=== PATIENT | female | born 1995 | race Caucasian/White ===

== ENCOUNTER 2021-10-05 19:47 | Emergency (ER) | payer OTHER, SELFPAY ==
--- NOTE | 2021-10-05 20:00 | ED.URI ---
HPI - URI/Sore Throat General Chief Complaint: Upper Respiratory Infection Stated Complaint: Cough Time Seen by Provider: 10/05/21 20:00 Source: patient and RN notes reviewed Mode of arrival: ambulatory Limitations: no limitations History of Present Illness HPI Narrative: 25-year-old female presents to the [facility] with a cough left ear pain and sinus congestion. Has taken Tylenol and an [id number] product today. Symptoms x2 days. Denies fevers. Denies nausea vomiting or diarrhea. No chest pain or shortness of breath Related Data Home Medications Medication Instructions Recorded Confirmed sertraline 100 mg tablet 1 tablet PO DAILY 10/05/21 10/05/21 Allergies Allergy/AdvReac Type Severity Reaction Status Date / Time No Known Allergies Allergy Verified 10/05/21 19:50 Review of Systems Review of Systems: All systems reviewed & are unremarkable except as noted in HPI and below Constitutional: Constitutional: Reports no additional constitutional complaints, Denies chills and Denies fever(s) Eyes: Eyes: Reports no additional eye complaints ENT: Reports as per HPI and Reports nasal congestion Cardiovascular: Cardiovascular: Reports no additional cardiovascular complaints Respiratory: Respiratory: Reports as per HPI, Denies chest congestion, Reports cough, Denies dyspnea and Denies wheezing Gastrointestinal: Gastrointestinal: Reports no additional gastrointestinal complaints Musculoskeletal: Musculoskeletal: Reports no additional musculoskeletal complaints Integumentary/Breasts: Skin/Breast: Reports system reviewed and no additional complaints, except as docu Neurologic: Reports system reviewed and no additional complaints, except as documented Psychiatric: Psychiatric: Reports no additional psychiatric complaints Allergic/Immunologic: Allergic/Immunologic: Reports no additional allergic/immunologic complaints [facility] Past Medical History Medical History Bipolar II disorder Surgical History Surgical History No pertinent past surgical history Family History Family History Father Family history of mental disorder Depression Mother Family history of migraine headaches Hypertension Sibling Family history of allergic disorder Family history of seizure disorder Grandparent Hypertension Malignant neoplasm of prostate Family history of malignant neoplasm of brain Family history of coronary artery disease Other Family history of malignant neoplasm of male breast Social History Social History (Reviewed 10/05/21 @ 20:23 by YUDI Rankin Smoking status: Never smoker Second hand tobacco smoke exposure: Yes Alcohol intake: never Comments At the time of my signature, I reviewed and agree with the nursing past medical, surgical, social, and family history. There is no relevant family history pertinent to the patient complaint. Exam Const: General: healthy appearing, no acute distress and alert Nutritional Appearance: well nourished Orientation/consciousness: patient oriented x3 Limitations: no limitations HENMT: Head: normal to inspection Ears: external ears normal and TM abnormal erythematous on the left General nose exam: Normal external nose present and Nasal discharge present clear Face and sinus: normal facial exam Throat: posterior oropharynx normal Eyes: General: appearance normal, both eyes and all related structures Pupils: Equal, round and reactive pupils present Neck: Neck: normal visual inspection, no lymphadenopathy and no meningeal signs Chest: Chest palpation & inspection: normal inspection of the chest Resp: Effort & Inspection: normal respiratory effort and no use of accessory muscles Auscultation: clear to auscultation bilaterally, no crackles, no rales, no rhonchi and no wheezes
[2021-10-05 20:10] VITALS: BP 130/76; PULSE 105; RESP 20; TEMP 37.2; O2SAT 100
== END 2021-10-05 20:26 | disposition home or self-care (01) ==
PROVIDERS: Emergency Provider Nurse Practitioner
DX: H66.92 Otitis media, unspecified, left ear (principal); R09.82 Postnasal drip; F31.81 Bipolar II disorder
CPT/HCPCS: 99213; G0463

== ENCOUNTER 2022-02-26 12:25 | Emergency (ER) | payer OTHER, SELFPAY ==
[2022-02-26 12:48] VITALS: BP 111/84; PULSE 88; RESP 18; TEMP 37.1; O2SAT 99
--- NOTE | 2022-02-26 12:50 | ED.URI ---
HPI - URI/Sore Throat General Chief Complaint: Upper Respiratory Infection Stated Complaint: Cough,Headache Time Seen by Provider: 02/26/22 12:50 Source: patient Mode of arrival: ambulatory Limitations: no limitations History of Present Illness HPI Narrative: 26-year-old female presents with complaint cough, nasal congestion, chest congestion, fatigue for 2 days. Afebrile. Denies shortness of breath and chest pain. Not taking any [id number] medications to treat her symptoms. Was seen at [facility] [employer] [facility] 2 days ago with her son who has similar symptoms and was told has adenovirus. All systems reviewed and negative except as noted above. Related Data Home Medications Medication Instructions Recorded Confirmed sertraline 100 mg tablet 1 tablet PO DAILY 10/05/21 02/26/22 Allergies Allergy/AdvReac Type Severity Reaction Status Date / Time No Known Allergies Allergy Verified 12/03/21 09:06 Review of Systems Review of Systems: CONSTITUTIONAL: Denies fever, chills, or sweats. EYES: Denies visual changes, redness, or discharge. ENT: Reports rhinorrhea, congestion. Deniessore throat, or otalgia. CARDIOVASCULAR: Denies chest pain, palpitations, or edema. RESPIRATORY: reports cough. denies dyspnea. GASTROINTESTINAL: Denies abdominal pain, nausea, vomiting, or diarrhea. GENITOURINARY: Denies dysuria or hematuria. SKIN: Denies rash or itching. MUSCULOSKELETAL: Denies back pain, joint pain, or myalgia. NEUROLOGIC: Denies headache, numbness, or weakness. PSYCHIATRIC: Denies anxiety or depression. All other systems reviewed are negative, except as documented in HPI. [facility] Past Medical History Medical History Bipolar II disorder Surgical History Surgical History No pertinent past surgical history Family History Family History Father Family history of mental disorder Depression Mother Family history of migraine headaches Hypertension Sibling Family history of allergic disorder Family history of seizure disorder Grandparent Hypertension Malignant neoplasm of prostate Family history of malignant neoplasm of brain Family history of coronary artery disease Other Family history of malignant neoplasm of male breast Social History Social History (System 12/03/21 @ 09:06 by Jorge Ruiz) Smoking status: Never smoker Second hand tobacco smoke exposure: Yes Alcohol intake: never Comments At time of signature, agree with nursing past medical, surgical, social and family history. There is no relevant family history pertinent to the presenting complaint. Exam Narrative: GENERAL: This is a well-nourished, well-developed patient, in no apparent distress. HEAD: normocephalic, atraumatic. EYES: PERRL. Sclera clear/white. Vision is grossly intact. EARS: External ears normal, auditory canals clear and without drainage, TMs normal without perforation. Hearing grossly intact. NOSE: External nose normal with no obvious nasal discharge, nares without redness, no rhinorrhea. THROAT: Mucous membranes moist, posterior pharynx clear. NECK: Neck supple, non-tender without lymphadenopathy, masses or thyromegaly. CARDIOVASCULAR: Regular rate and rhythm without murmurs, gallops, or rubs. RESPIRATORY: coarse lung sounds throughout all lung palencia. SKIN: warm, Dry, intact with no suspicious lesions or rash, good texture and turgor. NEURO: awake, alert, and oriented to person, place and time. There were no obvious focal neurologic abnormalities. EXTREMITIES: No joint tenderness, effusion, or edema noted. Course Course Level of Care: Express Care Visit Vital Signs Vital signs: Vital Signs Temperature 37.1 C 02/26/22 12:48 Pulse Rate 88 02/26/22 12:48 Respiratory Rate 18 02/26/22 12:48 Blood Pressure 111/84 02/15
== END 2022-02-26 13:15 | disposition home or self-care (01) ==
PROVIDERS: Emergency Provider Nurse Practitioner Family
DX: B34.9 Viral infection, unspecified (principal)
CPT/HCPCS: 87804; 99213; G0463

== ENCOUNTER 2022-04-21 10:57 | Emergency (ER) | payer OTHER, SELFPAY ==
[2022-04-21 11:04] VITALS: BP 125/73; PULSE 85; RESP 16; TEMP 36.8; O2SAT 99
--- NOTE | 2022-04-21 11:04 | ED.URI ---
HPI - URI/Sore Throat General Chief Complaint: Upper Respiratory Infection Stated Complaint: cough Source: patient and RN notes reviewed Mode of arrival: ambulatory Limitations: no limitations History of Present Illness HPI Narrative: 26 y/o female presented for c/o cough for 2 months, endorses 'crackles' and productive of clear or green sputum. cough worse at night. Also with sneezing and runny nose, feels sob with exertion. Quit smoking 2 months ago. Taking mucinex, Dayquil, Nyquil and refugio without relief. Feb 2022 her son was positive for influenza, this was about the onset of her symptoms. Denies hemoptysis, cp, palpitations, n/v/d/f/c. MD elicited complaint: cough Related Data Home Medications Medication Instructions Recorded Confirmed sertraline 100 mg tablet 1 tablet PO DAILY 10/05/21 04/21/22 Allergies Allergy/AdvReac Type Severity Reaction Status Date / Time No Known Allergies Allergy Verified 04/21/22 11:10 Review of Systems Review of Systems: CONSTITUTIONAL: Denies malaise, chills, sweats, fever EYES: Denies visual changes, redness, or discharge ENT: Reports rhinorrhea, denies sinus pain, otalgia, sore throat CARDIOVASCULAR: Denies chest pain, palpitations, edema RESPIRATORY: Per HPI GASTROINTESTINAL: Denies abdominal pain, nausea, vomiting, diarrhea SKIN: Denies rash or itching MUSCULOSKELETAL: Denies myalgia NEUROLOGIC: Denies headache PMFSH Past Medical History Medical History Bipolar II disorder Surgical History Surgical History No pertinent past surgical history Family History Family History Father Family history of mental disorder Depression Mother Family history of migraine headaches Hypertension Sibling Family history of allergic disorder Family history of seizure disorder Grandparent Hypertension Malignant neoplasm of prostate Family history of malignant neoplasm of brain Family history of coronary artery disease Other Family history of malignant neoplasm of male breast Social History Social History Smoking status: Never smoker Second hand tobacco smoke exposure: Yes Alcohol intake: never Exam Narrative: GENERAL: well-appearing EYES: PERRLA, conjunctivae clear ENT: Mucous membranes moist. TM pearly valverde with dull light reflex bilaterally; no tragal tenderness. Oropharynx erythematous without lesions or exudate CHEST: Coarse throughout all palencia. No respiratory distress, speaks in full sentences. HEART: Regular rate and rhythm. No murmur heard. SKIN: Warm, dry, no rash. NEURO: Alert and oriented x3. PSYCH: Normal mood and affect Course Course Emergency Course: Patient is aware of diagnosis, understands and agrees to treatment plan. Anticipatory guidance given. Patient agrees to follow-up as directed and is aware of reasons to seek care at the emergency department. Portions of this record may have been created with voice recognition software Level of Care: Express Care Visit Vital Signs Vital signs: reviewed MDM - URI/Sore Throat MDM Narrative Medical decision making narrative: Advised supportive measures and signs/symptoms to go to the ER. Pt is appropriate for outpt treatment and f/u. Differential Diagnosis Differential diagnosis: Likely upper respiratory infection, sinusitis, viral infection and bronchitis Discharge Plan Discharge Clinical Impression: Bronchitis Patient Disposition: Home, Self-Care Condition: Stable Instructions: Antibiotic Form, Acute Bronchitis (ED), Pneumonia (ED) Additional Instructions: Take medication as directed Recommend Flonase spray and Zyrtec (or Claritin/Refugio) over the counter Cough syrup may cause drowsiness; avoid driving or take it at night time. Alo
== END 2022-04-21 11:22 | disposition home or self-care (01) ==
PROVIDERS: Emergency Provider Nurse Practitioner Family
DX: J40 Bronchitis, not specified as acute or chronic (principal); Z87.891 Personal history of nicotine dependence; F31.81 Bipolar II disorder
CPT/HCPCS: 99213; G0463

== ENCOUNTER 2022-10-05 13:51 | Emergency (ER) | payer OTHER, SELFPAY ==
[2022-10-05 13:59] VITALS: BP 140/76; PULSE 101; RESP 16; O2SAT 100
--- NOTE | 2022-10-05 14:03 | ED.URI ---
HPI - URI/Sore Throat General Chief Complaint: Upper Respiratory Infection Stated Complaint: Cough; headache Time Seen by Provider: 10/05/22 14:03 Source: patient Mode of arrival: ambulatory Limitations: no limitations History of Present Illness HPI Narrative: 26-year-old female presents with complaint nasal congestion, postnasal drainage, sore throat, sinus pressure and pain, cough for the past 3 weeks. States she has tried several [id number] sinus medications with no relief of symptoms. Afebrile. Saw her primary care physician yesterday to discuss her symptoms and was told symptoms were from ingestion of meds given in an acid medication. states she has not started this medication as she feels that she has a sinus infection. All systems reviewed and negative except as noted above. Related Data Home Medications Medication Instructions Recorded Confirmed sertraline 100 mg tablet 1 tablet PO DAILY 10/05/21 10/05/22 famotidine 40 mg tablet 40 mg PO DAILY 10/05/22 10/05/22 Allergies Allergy/AdvReac Type Severity Reaction Status Date / Time No Known Allergies Allergy Verified 10/05/22 13:57 Review of Systems Review of Systems: CONSTITUTIONAL: Denies fever, chills, or sweats. EYES: Denies visual changes, redness, or discharge. ENT: Reports rhinorrhea, congestion, sore throat, postnasal drainage, sinus pressure. Denies otalgia. CARDIOVASCULAR: Denies chest pain, palpitations, or edema. RESPIRATORY: reports cough. Denies dyspnea. GASTROINTESTINAL: Denies abdominal pain, nausea, vomiting, or diarrhea. GENITOURINARY: Denies dysuria or hematuria. SKIN: Denies rash or itching. MUSCULOSKELETAL: Denies back pain, joint pain, or myalgia. NEUROLOGIC: Denies headache, numbness, or weakness. PSYCHIATRIC: Denies anxiety or depression. All other systems reviewed are negative, except as documented in HPI. [facility] Past Medical History Medical History Bipolar II disorder Surgical History Surgical History No pertinent past surgical history Family History Family History Father Family history of mental disorder Depression Mother Family history of migraine headaches Hypertension Sibling Family history of allergic disorder Family history of seizure disorder Grandparent Hypertension Malignant neoplasm of prostate Family history of malignant neoplasm of brain Family history of coronary artery disease Other Family history of malignant neoplasm of male breast Social History Social History Smoking status: Never smoker Second hand tobacco smoke exposure: Yes Alcohol intake: never Comments At time of signature, agree with nursing past medical, surgical, social and family history. There is no relevant family history pertinent to the presenting complaint. Exam Narrative: GENERAL: This is a well-nourished, well-developed patient, in no apparent distress. HEAD: normocephalic, atraumatic. EYES: PERRL. Sclera clear/white. Vision is grossly intact. EARS: External ears normal, auditory canals clear and without drainage, fluid bilateral TMs without erythema perforation. Hearing grossly intact. NOSE: External nose normal with Purulent nasal drainage with erythema and swelling to both nares. Bilateral maxillary sinus tenderness. THROAT: Mucous membranes moist, Erythema postnasal drainage. NECK: Neck supple, non-tender without lymphadenopathy, masses or thyromegaly. CARDIOVASCULAR: Regular rate and rhythm without murmurs, gallops, or rubs. RESPIRATORY: Clear to auscultation. Breath sounds equal bilaterally. No wheezes, rales, or rhonchi. SKIN: warm, Dry, intact with no suspicious lesions or rash, good texture and turgor. NEURO: awake, alert, and oriented to person, place
== END 2022-10-05 14:15 | disposition home or self-care (01) ==
PROVIDERS: Emergency Provider Nurse Practitioner Family
DX: J01.90 Acute sinusitis, unspecified (principal); F31.81 Bipolar II disorder
CPT/HCPCS: 99213; G0463

== ENCOUNTER 2023-04-17 14:07 | Emergency (ER) | payer OTHER, SELFPAY ==
[2023-04-17 14:20] VITALS: BP 123/68; PULSE 78; RESP 18; TEMP 36.3; O2SAT 99
--- NOTE | 2023-04-17 14:26 | ED.GENADULT ---
HPI - General Adult General Chief complaint: Upper Respiratory Infection Stated complaint: eye irritation,sorethroat Source: patient, RN notes reviewed and old records reviewed Mode of arrival: ambulatory Limitations: no limitations History of Present Illness HPI narrative: 27-year-old female presents to [facility] with complaint of sore throat that started today. Patient also complaining left eye redness, irritation, draining, a.m. matting this started 5-6 days ago. Patient states started using eyedrops(sulfacetamide) she got from a friend with out improvement. patient does wear contact lenses complaint: eye redness Onset (ago): day(s) Related Data Home Medications Medication Instructions Recorded Confirmed sertraline 100 mg tablet 1 tablet PO DAILY 10/05/21 04/17/23 Allergies Allergy/AdvReac Type Severity Reaction Status Date / Time No Known Allergies Allergy Verified 04/17/23 14:21 Review of Systems Constitutional: Constitutional: Reports no additional constitutional complaints, Denies body ache(s), Denies chills, Denies fatigue, Denies fever(s) and Denies headache(s) Eyes: Eyes: Reports as per HPI, Denies blurry vision, Denies exophthalmos, Denies change in vision, Denies decreased night vision, Denies diplopia, Reports eye discharge and Reports irritation ENT: Reports system reviewed and no additional complaints, except as documented, Denies vertigo, Denies dizziness, Denies ear discharge, Denies otalgia, Denies facial pain, Denies headache(s), Denies nasal congestion, Denies nasal discharge, Denies sinus pain, Denies sinus pressure and Reports sore throat Cardiovascular: Cardiovascular: Reports no additional cardiovascular complaints, Denies chest pain, Denies chest pain at rest, Denies rapid heart rate and Denies dyspnea Respiratory: Respiratory: Reports no additional respiratory complaints, Denies chest congestion, Denies cough, Denies pain on inspiration, Denies pain with cough and Denies dyspnea Gastrointestinal: Gastrointestinal: Denies abdominal pain, Denies diarrhea, Denies nausea and Denies vomiting Integumentary/Breasts: Skin/Breast: Denies rash Neurologic: Reports system reviewed and no additional complaints, except as documented, Denies vertigo, Denies dizziness and Denies headache(s) Endocrine: Endocrine: Denies fatigue PMFSH Past Medical History Medical History Bipolar II disorder Surgical History Surgical History No pertinent past surgical history Family History Family History Father Family history of mental disorder Depression Mother Family history of migraine headaches Hypertension Sibling Family history of allergic disorder Family history of seizure disorder Grandparent Hypertension Malignant neoplasm of prostate Family history of malignant neoplasm of brain Family history of coronary artery disease Other Family history of malignant neoplasm of male breast Social History Social History Smoking status: Never smoker Second hand tobacco smoke exposure: Yes Alcohol intake: never Comments At the time of my signature, I reviewed and agree with the nursing past medical, surgical, social, and family history. There is no relevant family history pertinent to the patient complaint. Exam Const: General: cooperative, healthy appearing, no acute distress and well nourished Nutritional Appearance: well nourished Orientation/consciousness: patient oriented x3 Limitations: no limitations HENMT: Head: normal to inspection and normocephalic Ears: external ears normal, TM's normal bilaterally, mastoids normal and Abnormal EAC present Face/Nose/Sinus: normal facial exam Face and sinus: normal facial exam Mouth: Yes Normal oral and palatal muc
== END 2023-04-17 14:42 | disposition home or self-care (01) ==
PROVIDERS: Emergency Provider Registered Nurse
DX: H10.32 Unspecified acute conjunctivitis, left eye (principal); J02.9 Acute pharyngitis, unspecified; Z79.899 Other long term (current) drug therapy
CPT/HCPCS: 87081; 87880; 99213; G0463

== ENCOUNTER 2024-01-04 08:19 | Emergency (ER) | payer SELFPAY ==
[2024-01-04 08:20] VITALS: BP 131/78; PULSE 82; RESP 18; TEMP 37.3; O2SAT 100
--- NOTE | 2024-01-04 08:24 | ED.DENTAL ---
HPI - Dental/Oral General Chief complaint: Dental/Oral Stated complaint: Dental Pain Time Seen by Provider: 01/04/24 08:28 Source: patient, RN notes reviewed and old records reviewed Mode of arrival: ambulatory Limitations: no limitations History of Present Illness HPI Narrative: 28-year-old female presents to the [facility] with complaints of dental pain. Swelling noted to the left cheek without erythema. Patient states the discomfort started yesterday, woke up this morning with swelling. Related Data Home Medications Medication Instructions Recorded Confirmed sertraline 100 mg tablet 1 tablet PO DAILY 10/05/21 04/17/23 Allergies Allergy/AdvReac Type Severity Reaction Status Date / Time No Known Allergies Allergy Verified 01/04/24 08:45 Review of Systems Review of Systems: All systems reviewed & are unremarkable except as noted in HPI and below Constitutional: Constitutional: Reports no additional constitutional complaints Eyes: Eyes: Reports no additional eye complaints ENT: Reports as per HPI and Reports dental pain Cardiovascular: Cardiovascular: Reports no additional cardiovascular complaints, Denies chest pain and Denies dyspnea Respiratory: Respiratory: Reports no additional respiratory complaints, Denies chest congestion, Denies cough and Denies dyspnea Gastrointestinal: Gastrointestinal: Reports no additional gastrointestinal complaints, Denies abdominal pain, Denies nausea and Denies vomiting Musculoskeletal: Musculoskeletal: Reports no additional musculoskeletal complaints Integumentary/Breasts: Skin/Breast: Reports system reviewed and no additional complaints, except as docu Neurologic: Reports system reviewed and no additional complaints, except as documented Psychiatric: Psychiatric: Reports no additional psychiatric complaints Allergic/Immunologic: Allergic/Immunologic: Reports no additional allergic/immunologic complaints [facility] Past Medical History Medical History Bipolar II disorder Surgical History Surgical History No pertinent past surgical history Family History Family History Father Family history of mental disorder Depression Mother Family history of migraine headaches Hypertension Sibling Family history of allergic disorder Family history of seizure disorder Grandparent Hypertension Malignant neoplasm of prostate Family history of malignant neoplasm of brain Family history of coronary artery disease Other Family history of malignant neoplasm of male breast Social History Social History Smoking status: Never smoker Second hand tobacco smoke exposure: Yes Alcohol intake: never Comments At the time of my signature, I reviewed and agree with the nursing past medical, surgical, social, and family history. There is no relevant family history pertinent to the patient complaint. Exam Const: General: cooperative, healthy appearing, no acute distress, well developed, alert, uncomfortable and well nourished Nutritional Appearance: well nourished Orientation/consciousness: patient oriented x3 Limitations: no limitations HENMT: Head: normal to inspection Ears: hearing grossly normal bilaterally, external ears normal, TM's normal bilaterally, EAC's normal, mastoids normal and no periauricular adenopathy Face/Nose/Sinus: Normal external nose present, Normal nares present, Normal nasal mucous membranes and turbinates present, No nasal discharge present, normal facial exam and face symmetric Face and sinus: normal facial exam, no ecchymosis, no erythema and Facial tenderness on exam of face and sinuses on the left angle of jaw Mouth: Yes lip normal and Yes tongue normal Teeth and gingiva: abnormal tooth and associated gingiva (Left upper overhead foreman
== END 2024-01-04 08:48 | disposition home or self-care (01) ==
PROVIDERS: Emergency Provider Nurse Practitioner
DX: K04.7 Periapical abscess without sinus (principal)
CPT/HCPCS: 99213; G0463